=== PATIENT | female | born 1970 | race American Indian/Alaskan Native ===

== ENCOUNTER 2020-12-22 07:05 | Day surgery (SDC) | payer BC ==
[2020-12-17 11:16] LABS: Hematocrit 30.5 % (30.3-42.9); Hemoglobin 10.7 gm/dl (10.1-14.3); Mean Corpuscular HGB Conc 35 % (30-34); Mean Corpuscular Volume 89 fl (79-97); Platelet Count 261 K/mm3 (140-440); Red Blood Count 3.43 M/mm3 (3.65-5.03); Red Cell Distribution Width 13.4 % (13.2-15.2)
[2020-12-17 11:34] LABS: Blood Urea Nitrogen 9 mg/dL (7-17); Calcium 10.5 mg/dL (8.4-10.2); Hemolysis Index 4
[2020-12-17 11:44] LABS: BUN/Creatinine Ratio 13
--- NOTE | 2020-12-22 07:27 | Short Stay Summary ---
Short Stay Documentation Date of service: 12/22/20 Narrative H&P: 50-year-old -1-1-2 with a history of dysfunctional uterine bleeding. Pelvic ultrasound was performed that confirmed evidence of a thickened endometrium at 26 mm. The ultrasound findings were consistent with suspected endometrial polyps. Endometrial biopsy was performed that confirmed benign endometrial polyps. Pelvic ultrasound also demonstrated small leiomyomas measuring 2.0 cm and 1.6 cm respectively. The patient has elected to undergo harman rgical management of her abnormal bleeding. - History Principal diagnosis: Abnormal uterine bleeding Past Medical History: other Past Surgical History: , Other (Dilatation and curettage; tubal ligation; myomectomy) Social history: - Allergies and Medications Current Medications: Allergies No Known Allergies Allergy (Unverified 12/16/20 10:44) Home Medications Medication Instructions Recorded Confirmed Last Taken Type Iron [Iron 18 MG TAB] 25 mg PO QDAY 12/16/20 12/16/20 Unknown History hydroCHLOROthiazide [HCTZ] 25 mg PO QDAY 12/16/20 12/16/20 Unknown History - Physical exam General appearance: no acute distress Integumentary: no rash HEENT: Atraumatic Lungs: Clear to auscultation Breasts: deferred Heart: Regular rate Gastrointestinal: normal Female Genitourinary: deferred Rectal Exam: deferred Extremities: no ischemia - Brief post op/procedure progress note Date of procedure: 12/22/20 Pre-op diagnosis: Endometrial polyps and abnormal uterine bleeding Post-op diagnosis: same Procedure: Hysteroscopy Dilatation and curettage Extraction of endometrial polyps with MyoSure Endometrial ablation with NovaSure Anesthesia: PARAGA Surgeon: VINITA ROMO Estimated blood loss: minimal Pathology: list (Endometrial polyps and endometrial curettings) Specimen disposition: to lab Condition: stable - Hospital course Hospital course: The patient was admitted the day of surgery and underwent a hysteroscopy removal of endometrial polyps and endometrial ablation. Please see operative note for details of surgery. Her postoperative course was uneventful. - Disposition Condition at discharge: Good Disposition: DC-[id number] TO HOME OR SELFCARE Short Stay Discharge Plan Activity: other (Pelvic rest for 1 week) Diet: regular Additional Instructions: Patient should call to schedule a postoperative appointment in [address] Romo Prescriptions: Ibuprofen [Motrin] 800 mg PO Q8HR PRN #30 tablet PRN Reason: Pain , Severe (7-10) HYDROcodone/APAP 5-325 [[place] 5/325] 1 each PO Q6HR PRN #15 tablet PRN Reason: Pain
[2020-12-22] MEDS ORDERED: LACTATED RINGERS 1,000 ML IV SCH (08:00)
[2020-12-22] MEDS ORDERED: ONDANSETRON 4 MG/2 ML INJ IV PRN (08:04)
[2020-12-22] MEDS ORDERED: HYDROmorphone 1 MG/1 ML INJ IV PRN ×2 (08:04)
--- NOTE | 2020-12-22 08:05 | Anesthesia Day of Surgery ---
Anesthesia Day of Surgery - Day of Surgery Patient Examined: Yes Patient H&P Reviewed: Yes Patient is NPO: Yes
--- NOTE | 2020-12-22 08:07 | Anesthesia Consultation ---
Anesthesia Consult and Med Hx Date of service: 12/22/20 - Airway Anesthetic Teeth Evaluation: Good ROM Head & Neck: Adequate Mental/Hyoid Distance: Adequate Mallampati Class: Class II Intubation Access Assessment: Good - Pre-Operative Health Status ASA Pre-Surgery Classification: ASA2 Proposed Anesthetic Plan: General - Pulmonary Hx Smoking: No - Cardiovascular System Hx Hypertension: Yes - Central Nervous System Hx Psychiatric Problems: No - Gastrointestinal Hx Gastroesophageal Reflux Disease: No - Endocrine Hx Thyroid Disease: Yes (1 cm nodule; asymptomatic) - Hematic Hx Anemia: Yes - Other Systems Hx Cancer: No Hx Obesity: No
[2020-12-22] MEDS ORDERED: propofoL 200 MG/20 ML VIAL IV ONE (08:35)
[2020-12-22] MEDS ORDERED: fentaNYL 100 MCG/2 ML INJ ONE (08:35)
[2020-12-22] MEDS ORDERED: ONDANSETRON 4 MG/2 ML INJ ONE (08:35)
[2020-12-22] MEDS ORDERED: MIDAZOLAM 2 MG/2 ML INJ IV NR (09:00)
--- NOTE | 2020-12-22 09:49 | Operative Report ---
Operative Report Operative Report: Date of procedure: December 22, 2020 Pre-operative diagnosis: Endometrial polyp; dysfunctional uterine bleeding Post-operative diagnosis: Same as above Procedure name(s): Hysteroscopy; endometrial ablation via NovaSure; dilatation and curettage; endometrial polypectomy with MyoSure Surgeon: Elena Maher M.D. Superintendent Communications: None Anesthesia: General endotracheal anesthesia Findings multiple endometrial polyps Pathology: Endometrial polyps and endometrial curettings Indication: 50-year-old -1-1-2 with a history of endometrial polyps and dysfunctional uterine bleeding. Patient elected to undergo surgical management of her symptoms. Procedure The patient was taken to the operating room and given general tracheal anesthesia without complication. The patient was prepped and draped in a normal sterile fashion. A bivalve speculum was placed in the patient's vagina single- tooth tenaculums placed on the anterior lip of the cervix. The cervical os was dilated with graduated dilators. A uterine sound was inserted. The hysteroscope was then placed. Insufflation of the uterine cavity was performed with normal saline. Gen. survey of the uterine cavity revealed 2-3 endometrial polyps. The MyoSure device was inserted through the hysteroscope. The endometrial polyps were removed with the MyoSure. The hysteroscope was then removed. A sharp curettage of the endometrial surface was performed. The NovaSure device was then inserted. The endometrial length was 5.5 cm and the uterine width was 3.5 cm. The device was engaged and it passed the surveillance of the uterine cavity. The NovaSure device was then deployed with a energy of 106 W that lasted for 1 minute 30 seconds. The NovaSure device was then removed. The hysteroscope was again reinserted. There was evidence of charring of the endometrial surface. The remainder of the vaginal instruments were then removed atraumatically. The patient was then successfully extubated taken to the recovery room. All sponge laps and needle counts were correct 2.
[2020-12-22 11:58] VITALS: BP 142/85
--- NOTE | 2020-12-22 16:36 | Post Anesthesia Evaluation ---
- Post Anesthesia Evaluation Patient Participated: Yes Airway Patent: Yes Stable Respiratory Function: Yes Nausea/Vomiting: No Temp > 96.8F: Yes Pain Manageable: Yes Adequeate Hydration: Yes Anesthesia Complications: No Block Receding Appropriately: Not Applicable Patient on Ventilator: No
== END 2020-12-22 11:45 | disposition home or self-care (01) ==
LOC: OR 07:05
PROVIDERS: ATTEND Obstetrics & Gynecology
DX: N93.8 Other specified abnormal uterine and vaginal bleeding (principal); N84.0 Polyp of corpus uteri; G43.909 Migraine, unspecified, not intractable, without status migrainosus; I10 Essential (primary) hypertension; D64.9 Anemia, unspecified; Z98.891 History of uterine scar from previous surgery; Z79.899 Other long term (current) drug therapy; Z98.890 Other specified postprocedural states
CPT/HCPCS: 36415; 58563; 80048; 84703; 85027; 88305; C1782; J1170; J2405; J2704; J3010; J7120